=== PATIENT | male | born 1970 | race Caucasian/White ===

== ENCOUNTER 2016-12-21 08:49 | Emergency (ER) | payer OTHER ==
[~2016-12-21] VITALS: Ht 175.3 cm; Wt 77.3 kg
[2016-12-21 09:00] VITALS: BP 160/110; PULSE 70; RESP 16; O2SAT 99
--- NOTE | 2016-12-21 09:09 | ED.REPORT ---
HPI-Dyspnea / Wheezing Date of Service Dec 21, 2016 ED Provider: Jp Maldonado DO A 46 year old male with a history of wheat allergies presents to the ED with dyspnea that began this morning at 0100 this morning. The patient reportedly inhaled dust from a grain sac 3 days ago and has experienced a persistent non-productive cough with associated SOB. His symptoms became increasingly worse at 0300 this evening and he began to experience a "violent" cough that resolved prior to this morning. The patient went to Urgent Care this morning and was sent to the ED for further evaluation. Patient is a former smoker. Nursing Notes Stated Complaint: SOB/SENT BY Chief Complaint: Respiratory Distress Nursing Notes Reviewed: Yes Allergies: Coded Allergies: Wheat (Verified Allergy, Unknown, 12/21/16) Scheduled Albuterol HFA (Proair HFA) 8.5 Gm Hfa.aer.ad 2 PUFFS INHALATION Q4H General Time Seen by MD: 09:08 Chief Complaint Shortness of breath Hx Obtained From: Patient Arrived By: Walk-in Sudden in Onset?: No Onset Occurred: 3 days ago Symptom Duration: Since onset Location: : None Associated with: Reports: Cough Pertinent Negative: Pt denies other symptoms Recent Healthcare: No recent doctor visit, No recent hospitalization Similar Sx Previous: No Past Medical History Past Medical History Wheat allergy; otherwise healthy Past Surgical History Calcaneous repair (2006) Smoking History Former Smoker Social History Other Social History: Good social support, Local resident Ambulatory Status Independent Review of Systems Respiratory: Reports: Non-productive cough, Shortness of breath Complete sys rev & neg: except as marked. Physical Exam Initial Vital Signs Vital Signs (First) Date Time Temp Pulse Resp B/P Pulse Ox O2 Delivery O2 Flow Rate FiO2 12/21/16 09:00 37.2 70 16 160/110 99 12/21/16 09:48 Room Air Initial VS: Reviewed Head / Eyes: Atraumatic, Normocephalic, PERRL Extremities: Vascular intact, Neuro intact, No swelling, No tenderness Skin: Warm, Dry, No cyanosis Neurologic: Alert, Oriented, Nonfocal Psychiatric: Mood/affect normal, Behavior normal, Normal thought content General/Constitutional: Awake, Alert, No acute distress Neck: Atraumatic, Supple, Full range of motion Respiratory / Chest: Atraumatic, Breath sounds NL, Breath sounds = bilat, No respiratory distress, No wheezing, No retractions RESPIRATORY: Cough still present upon examination Cardiovascular: Heart rate NL, Regular rhythm, Heart sounds NL Abdomen: Atraumatic, Soft Interpretation & Diagnostics X-Ray Chest Interpretation Chest Xray Interpretation: IMPRESSION: No acute disease Dictated by: Camilo Mcadams M.D. on 12/21/2016 at 8:34 Interpretation / Wet Read by: Interpret - Radiologist Re-Eval/Medical Decision Re-Evaluation/Progress : Time of Eval: 09:43 )( Re-Eval Resp / Chest: Breath sounds normal, No respiratory distress Re-Evaluation/Progress Note: Patient is rechecked. He is informed of his current results. All questions about the intended treatment plan at present are addressed. The patient is agreeable to his disposition at this time. Counseled Regarding: Diagnosis, Need for follow-up, When/why to return to ED Discharge & Departure Impression: Primary Impression: Dyspnea Additional Impression: Allergic reaction Disposition: Home Discharge Condition All VS Reviewed: Yes Condition: Improved Patient Instructions: Allergies (ED), Dyspnea (ED) Additional Instructions: Thank you for trusting us with your care this morning. Your emergency department evaluation today including examination and chest X- ray are reassuring that there is no emergent cause for concern at this time. Use the albuterol inhaler with the spacer as directed to improve breathing. Schedule a follow up appointment with your primary care physician in the next week for a recheck. Please return to the emergency department for any new or worsening conditions including any headache, nausea, vomiting, fever, chills, thick sputum, shortness of breath, chest pain, abdominal pain, or any other concerning symptoms. Referrals: Carey Bowman MD Scribe Attestation Portions of this note were transcribed by Lima Goldsmith. I, Dr. Roshni Potts, personally performed the history, physical exam and medical decision-making; I reviewed and confirmed the accuracy of the information in the transcribed note. Signed by: Lima Goldsmith, 12/21/16. Jp Maldonado DO Dec 21, 2016 09:09 LIMA GOLDSMITH Dec 21, 2016 09:16
[2016-12-21] MEDS ORDERED: Albuterol 2.5 mg/3 mL Inhalation Solution NEB ONE (09:20)
--- NOTE | 2016-12-21 09:37 | DRSVH ---
PROCEDURE: X-RAY CHEST, TWO VIEWS ([id number]) INDICATIONS: cough TECHNIQUE: 2 views of the chest were acquired. COMPARISON: None. FINDINGS: Surgical changes and devices: None. Lungs and pleura: No pleural effusions or pneumothorax. Lungs are clear. Mediastinum: Mediastinal contours are normal. Heart size is normal. Bones and chest wall: No suspicious bony abnormalities. Soft tissues appear unremarkable. IMPRESSION: No acute disease Dictated by: Camilo Mcadams M.D. on 12/21/2016 at 8:34 Approved by: Camilo Mcadams M.D. on 12/21/2016 at 8:35
[2016-12-21 09:48] VITALS: PULSE 62; RESP 18; O2SAT 96
[2016-12-21] MEDS ORDERED: ALBU8.5H2 INHALATION (09:57)
[2016-12-21 10:20] VITALS: BP 157/96; PULSE 60; RESP 15; O2SAT 100
== END 2016-12-21 10:21 | disposition home or self-care (01) ==
LOC: SED 08:49
DX: T78.49XA Other allergy, initial encounter (principal); R06.00 Dyspnea, unspecified; Y93.89 Activity, other specified; Y92.69 Other specified industrial and construction area as the place of occurrence of the external cause; Y99.0 Civilian activity done for income or pay; R05 Cough; Z98.890 Other specified postprocedural states; Z91.018 Allergy to other foods
CPT/HCPCS: 71020; 94664; 99283; J7613